=== PATIENT | female | born 2000 | race Caucasian/White ===

== ENCOUNTER 2020-05-14 18:41 | Emergency (ER) | payer BC, SELFPAY ==
[2020-05-14 18:42] VITALS: BP 148/86; PULSE 99; RESP 16; TEMP 36.2; O2SAT 97; BMI 29.2
--- NOTE | 2020-05-14 19:12 | ED.DCSUM_ITS ---
History of Present Illness Chief Complaint: Headache Informant: Patient Narrative: 19-year-old female presenting with symptoms of dizziness and difficulty focusing. She states she was hit in the head with a tennis racquet while playing tennis. She did not get knocked out. She sustained no contusions or lacerations to her head. She followed up with the [facility] and told him her symptoms and they sent her to the emergency room. And has been able to walk with a stable gait. She has not fallen. Past Medical History Primary Care Physician: NOT,DEFINED [Primary Care Provider] - Prior records reviewed: Yes Past Medical History: - - Migraines Surgical History: noncontributory Lives: Alone Smoking Status: Never smoker Alcohol: None Drugs: None Review of Systems General: Denies: Chills, Fever, Sweats Eyes: Denies: Visual changes - bilaterally, Diplopia ENT: Denies: Rhinorrhea, Sore throat Cardiovascular: Denies: Chest pain, Palpitations Respiratory: Denies: Dyspnea, Cough, Dyspnea on exertion Gastrointestinal: Denies: Abdominal pain, Nausea, Vomiting, Diarrhea, Melena, Hematochezia Genitourinary: Denies: Dysuria, Hematuria, Frequency Musculoskeletal: Denies: Back pain, Extremity Pain Neurological: Reports: Headache, - - Lightheadedness Psych: Denies: Depression, Anxiety Physical Exam Vital Signs/Narrative: Vital Signs Temp Pulse Resp BP Pulse Ox 05/14/20 18:42 97.2 F L 99 16 148/86 H 97 Inital Vital Signs reviewed: Yes General: Well nourished, Well developed Head: Normocephalic, Atraumatic Eyes: Perrl, EOMI ENT: Moist mucous membranes, No rhinorrhea Cardiovascular: Regular rate, Regular rhythm Respiratory: No distress, CTA bilaterally Extremities: Nontender, No edema Skin: Normal color, No rash Neurological: Alert, Oriented x3, Cranial nerves II-XII grossly intact, - - No focal neurologic deficits or lateralizing signs or symptoms Psychological: Normal affect, Normal Mood Diagnostic/Tx/Re-eval 19-year-old female presenting with symptoms of concussion. She has no focal neurologic deficits or lateralizing signs or symptoms. She is able to briskly jump off the bed and walk across the room without any abnormal or unstable gait. I do not believe she needs CT imaging. She is given concussion precautions and she will discharged home in stable condition. She is counseled to follow-up with [facility]. Impression 1. Concussion ED Disposition - Plan for ED Patient: Disposition: Home or Assisted Living Instructions: ED Concussion Referrals: NOT,DEFINED [Primary Care Provider] -
== END 2020-05-14 20:02 | disposition home or self-care (01) ==
LOC: ED 19:59
PROVIDERS: Emergency Provider Student in an Organized Health Care Education/Training Program
DX: S06.0X9A Concussion with loss of consciousness of unspecified duration, initial encounter (principal); Y93.73 Activity, racquet and hand sports
CPT/HCPCS: 99282

== ENCOUNTER → 2021-03-13 16:03 | Outpatient (CLI) | payer BC, SELFPAY | PROVIDERS: Visit Provider Family Medicine | DX: Z23 Encounter for immunization (principal) ==